=== PATIENT | female | born 1995 | race Caucasian/White ===

== ENCOUNTER 2021-03-19 12:05 | Emergency (ER) | payer MEDICAID ==
[~2021-03-19] VITALS: Ht 167.6 cm; Wt 63.5 kg
[2021-03-19 13:00] LABS: BASO % 0.5 % (0.0-1.0); EOS % 0.9 % (1.0-4.0); HEMATOCRIT 37.7 % (37.0-47.0); LYMPH # 1.4 10*3/uL (1.3-4.4); LYMPH % 31.5 % (27.0-41.0); MEAN CORPUSCULAR HGB 30.1 pg (27.0-31.0); MEAN CORPUSCULAR HGB CONC 33.4 g/dl (33.0-37.0); MEAN PLATELET VOLUME 9.9 fl (9.6-12.3); MONO # 0.3 10*3/uL (0.1-1.0); MONO % 6.8 % (3.0-9.0); NEUT # 2.7 10*3/uL (2.3-7.9); NEUT % 60.1 % (47.0-73.0); PLATELET COUNT AUTOMATED 236 10*3/uL (130-400); RED BLOOD COUNT 4.19 10*6/uL (4.10-5.10); WHITE BLOOD COUNT 4.4 10*3/uL (4.8-10.8)
[2021-03-19 13:08] LABS: BILIRUBIN Negative (Negative); BLOOD Trace-Intact (Negative); CLARITY Cloudy (Clear); COLOR Yellow (Yellow); GLUCOSE Negative (Negative); KETONE Trace (Negative); LEUKO ESTERASE Trace (Negative); NITRITE Negative (Negative); SPECIFIC GRAVITY >= 1.030 (1.001-1.030)
[2021-03-19 13:17] LABS: ALBUMIN 4.1 gm/dl (3.1-4.5); BUN 20 mg/dl (7-24); CHLORIDE 108 mmol/L (98-107); CREATININE 0.84 mg/dL (0.55-1.02); LIPASE 70 U/L (73-393); POTASSIUM 3.8 mmol/L (3.5-5.1); SGOT/AST 7 IU/L (3-35); SGPT/ALT 17 U/L (12-78); SODIUM 137 mmol/L (136-145); TOTAL PROTEIN 7.2 gm/dL (6.4-8.2)
[2021-03-19 13:18] LABS: ALKALINE PHOSPHATASE 76 U/L (45-117)
[2021-03-19 13:22] LABS: BACTERIA 2+; EPITHELIAL CELLS 31-40; MUCOUS 2+
[2021-03-19] MEDS ORDERED: CEFUROXIME AXE500 MG PO (15:21)
[2021-03-19] MEDS ORDERED: Motrin,Rufen800 MG PO (15:21)
[2021-03-19] MEDS ORDERED: HYDROCODONE-AC1 EAC1 PO (15:21)
[2021-03-19] MEDS ORDERED: ZOFRAN4 MG PO (15:21)
[2021-03-19] MEDS ORDERED: FLOMAX0.4 MG PO (15:21)
== END 2021-03-19 16:02 | disposition home or self-care (01) ==
LOC: ED 12:05
PROVIDERS: Emergency Medicine; Physician Assistant
DX: N20.1 Calculus of ureter (principal); F17.200 Nicotine dependence, unspecified, uncomplicated; Z90.711 Acquired absence of uterus with remaining cervical stump